=== PATIENT | female | born 1955 ===

== ENCOUNTER → 2021-11-26 10:18 | Outpatient (CLI) | payer BC, MEDICARE, SELFPAY ==
--- NOTE | 2021-11-26 10:26 | DI.RAD.S_ITS ---
PROCEDURE: XR LUMBAR SPINE MIN 4V INDICATIONS: BACK PAIN TECHNIQUE: 5 views of the lumbar spine were acquired, including bilateral oblique views. COMPARISON: None. FINDINGS: Bones: 5 nonrib-bearing vertebrae are present. Generalized osteopenia. Postsurgical changes are seen from laminectomies throughout the mid to lower lumbar spine with posterior pedicle screws and interbody rods at L1 through L3. There is apparent solid osseous fusion across the disc space from the L3 level through the S1 level. Osseous fusion of the posterior elements is also seen. There is partial osseous fusion across the L1-2 and L2-3 disc space. Disc space narrowing and degenerative endplate changes are seen at the T11-12 and T12-L1 levels. Mild levoconvex curvature is seen at the thoracolumbar junction. No vertebral body compression fractures. No suspicious bony lesions. Soft tissues: Overlying bowel gas pattern is normal. No suspicious soft tissue calcifications. Oblique images: No pars defects. IMPRESSION: 1. Postsurgical changes throughout the lumbar spine as described in the body of the report with solid osseous fusion. 2. Degenerative changes are seen in the included lower thoracic spine. 3. No acute osseous abnormality. If the symptoms persist, consider cross sectional imaging such as MRI or CT for further assessment. Dictated by: Giancarlo Mane M.D. on 11/26/2021 at 11:11 Approved by: Giancarlo Mane M.D. on 11/26/2021 at 11:15
== END ==
PROVIDERS: PCP Family Medicine; Referring Provider Physical Medicine & Rehabilitation; Visit Provider Physical Medicine & Rehabilitation
DX: M54.9 Dorsalgia, unspecified (principal)
CPT/HCPCS: 72110

== ENCOUNTER → 2022-01-03 09:44 | Outpatient (CLI) | payer BC, MEDICARE, SELFPAY ==
--- NOTE | 2022-01-03 09:51 | DI.MRI.S_ITS ---
PROCEDURE: MR LUMBAR SPINE WO CON INDICATIONS: SI joint pain status post lumbar fusion TECHNIQUE: Noncontrast sagittal T1 spin echo and T2 fast echo, sagittal STIR, and T2 fast spin echo through the lumbar spine. In cases with scoliosis, additional coronal T2 fast spin echo may be performed. COMPARISON: [facility], CR, XR LUMBAR SPINE MIN 4V, 11/26/2021, 10:22. FINDINGS: Image quality: Excellent. Alignment and Curvature: S shaped scoliotic curvature is present within the visualized thoracolumbar spine. There is 3 mm retrolisthesis of L1 on L2, 5 mm retrolisthesis of L2 on L3. Posterior fusion is present at L1 through L3. There is appearance of near complete osseous fusion from L3 through S1. Bone Marrow: Marrow is of normal overall signal. Moderate reactive endplate changes are present at T12-L1, T11-12. No acute vertebral body compression fractures. Spinal Cord: Conus medullaris terminates at the L1 level. Visualized cord demonstrates normal signal and size. Paraspinous Soft Tissues: No paravertebral masses. Discs: Severe desiccation is present throughout the lumbar spine. T12-L1: Mild disc bulge with effacement of the anterior thecal sac. Moderate bilateral foraminal narrowing with facet and ligamentum flavum hypertrophy. L1-L2: Minimal disc bulge without spinal stenosis. There is appearance of likely [id number] right foraminal narrowing partially obscured by susceptibility artifact from pedicle hardware. L2-L3: Mild disc bulge without spinal stenosis. Mild to moderate bilateral foraminal narrowing, right greater than left with facet and ligamentum flavum hypertrophy. L3-L4: No disc bulge or spinal stenosis. Mild left foraminal narrowing with facet hypertrophy. Posterior laminectomy is present. L4-L5: No disc bulge or spinal stenosis. Posterior laminectomy changes are present. Mild right foraminal narrowing. L5-S1: Minimal disc bulge without spinal stenosis. Mild bilateral foraminal narrowing. Posterior laminectomy changes. IMPRESSION: Postsurgical changes as above. Multilevel disc bulges. There is effacement of the anterior thecal sac at T12-L1 secondary to disc bulge. Multilevel foraminal narrowing is present most notable at T12-L1 as well as L2-3. Dictated by: Juliet Boyce M.D. on 01/05/2022 at 11:51 Approved by: Juliet Boyce M.D. on 01/05/2022 at 14:49
== END ==
PROVIDERS: PCP Family Medicine; Referring Provider Physical Medicine & Rehabilitation; Visit Provider Physical Medicine & Rehabilitation
DX: M53.3 Sacrococcygeal disorders, not elsewhere classified (principal); M41.9 Scoliosis, unspecified; M51.25 Other intervertebral disc displacement, thoracolumbar region; M51.26 Other intervertebral disc displacement, lumbar region; M48.05 Spinal stenosis, thoracolumbar region; M48.061 Spinal stenosis, lumbar region without neurogenic claudication; Z98.1 Arthrodesis status
CPT/HCPCS: 72148

== ENCOUNTER 2022-01-27 09:52 | Outpatient (CLI) | payer BC, MEDICARE, SELFPAY ==
[2022-01-27] VITALS (10 sets, daily range): BP systolic 123–160; BP diastolic 69–93; PULSE 59–69; RESP 14–20; TEMP 36.8; O2SAT 97–100
--- NOTE | 2022-01-27 09:55 | DI.RAD.S_ITS ---
PROCEDURE: PAIN SI JOINT INJECTION DYLLAN COMPARISON: [facility], MR, MR LUMBAR SPINE WO CON, 01/03/2022, 10:38. [facility], CR, XR LUMBAR SPINE MIN 4V, 11/26/2021, 10:22. INDICATIONS: SACROILIAC DISORDER FINDINGS: Fluoroscopic spot filming was performed to verify placement of spinal needles on both sides into the sacroiliac joints, as labeled on the films. Appropriate location of the needle tips was confirmed by injection of iodinated contrast. IMPRESSION: Intraprocedural examination demonstrating appropriate positions of the needles. Dictated by: Arvind Forte M.D. on 01/27/2022 at 12:26 Approved by: Arvind Forte M.D. on 01/27/2022 at 12:26
[2022-01-27 11:05] LABS: COVID19 -Nasal RAPID Negative (Negative)
[2022-01-27] MEDS: MIDAZOLAM 2 MG/2 ML VIAL IV ×2 (12:08→12:13)
[2022-01-27] MEDS: IOPAMIDOL 15 ML VIAL 3 ML INJ (12:11)
[2022-01-27] MEDS: BUPIVACAINE 0.5% (PF) VIAL 5 ML INJ (12:11)
[2022-01-27] MEDS: BETAMETHASONE 30 MG/5 ML MDV 12 MG INJ (12:13)
[2022-01-27] MEDS: LIDOCAINE 1% 20 ML INJ (12:14)
--- NOTE | 2022-01-27 12:25 | P.PCN_ITS ---
Date/Time/Diagnoses Date of procedure: 01/27/22 Time of procedure: 12:25 Pre-procedure diagnosis: Sacroiliac joint pain/DJD Post-procedure diagnosis: same Procedure Notes Procedure: Fluoroscopic guided contrast controlled bilateral sacroiliac joint injection Indications: Thea is referred by Dr. Corrales for treatment of bilateral sacroiliac joint DJD Physician: Lenard Worthington Total Fluoroscopy time (seconds): 14 Total sedation minutes: 14 Complications: none Procedure in detail & Post-procedure care: Description of procedure Fluoroscopic guided, contrast controlled bilateral sacroiliac joint injection Following review of allergies and review of potential side effects and complications, including, but not necessarily limited to, infection, allergic reaction, local tissue breakdown, temporary as well as permanent nerve injury, paralysis, stroke and possible , the patient indicated that they understood and agreed to proceed. An informed consent was signed by the patient, witnessed by a nurse, and placed in the patient's chart. Additionally, other treatment options including modalities, medications, and physical therapy were reviewed with the patient. After review of previous anaesthesic history and IV conscious sedation the patient was deemed safe to proceed with today?s procedure with IV conscious sedation as ASA class II designation. Safety time-out was performed to confirm patient ID, procedure to be performed and site of procedure. IV sedation was accomplished with a combination of 4mg Versed were administered by the RN after DO order, titrated to patient comfort during the course of the procedure while the patient remained responsive to all verbal commands In the prone position following sterile prep and drape of the pelvic region, the hyper lucency on in the inferior aspect of the sacroiliac joint was identified fluoroscopically the skin was anesthetized be a 25 gauge 1.5 inch needle with approximately 2cc of 1% lidocaine solution. At this point, a 22 gauge 3 in spi nal needle was atraumatically introduced and advanced under fluoroscopic guidance into the inferior aspect of the right sacroiliac joint. Following negative aspiration, approximately 0.3cc of Isovue-300 was injected confirming intra-articular placement without vascular uptake. Radiographic data, including multiple fluoroscopic views of the pelvis, reveals a spinal needle in the sacroiliac joint hyper lucent zone. Subsequent view show flow contrast tear superiorly and inferiorly within the joint capsule without vascular intrathecal uptake. At this point a total of 1cc of 0.5% Marcaine was combined with 1cc of 6mg of betamethasone was injected without incident. Attention was then refocused the left sacroiliac joint where the procedure was replicated. The procedure tolerated the procedure well without signs or symptoms of complications prior to transfer to the recovery area continued monitoring without incident. The patient was then transferred to the recovery area with a bur observed for an appropriate time after the injection. The patient reverted a vas score of 7 prior to the procedure and post-procedure vas of 1. Postop instructions The patient was provided with a pain like to continue to record the patient's response to the target specific procedure prior to the patient's follow-up visit with the referring physician. Additionally, specific post injection care instructions and a contact number to our office were provided if concerns arise regarding the possible complications associated with procedure are suspected.
== END 2022-01-27 12:43 | disposition home or self-care (01) ==
LOC: RAD 09:55
PROVIDERS: PCP Family Medicine; Referring Provider Physical Medicine & Rehabilitation; Visit Provider Physical Medicine & Rehabilitation
DX: M53.3 Sacrococcygeal disorders, not elsewhere classified (principal); M41.26 Other idiopathic scoliosis, lumbar region
CPT/HCPCS: 27096; 87635; 99152; J0702; J2250

== ENCOUNTER 2022-04-14 09:43 | Outpatient (CLI) | payer BC, MEDICARE, SELFPAY ==
[2022-04-14] VITALS (8 sets, daily range): BP systolic 112–152; BP diastolic 69–85; PULSE 50–68; RESP 15–30; TEMP 36.8; O2SAT 96–99
--- NOTE | 2022-04-14 09:45 | DI.RAD.S_ITS ---
PROCEDURE: PAIN L INTERLAMINAR/CAUDAL INJ INDICATIONS: SPONDYLOSIS COMPARISON: None. FINDINGS: Fluoroscopic spot filming was performed to verify placement of spinal needles at the T12-L1 interlaminar space level(s), as labeled on the films. Appropriate location(s) of the needle tip(s) was confirmed by injection of iodinated contrast. Partially visualized lumbar spine fixation hardware. IMPRESSION: Access needle tip in the T12-L1 interlaminar space for translaminar epidural steroid injection. Dictated by: Tierney Mendoza MD, PhD on 04/14/2022 at 13:55 Approved by: Tierney Mendoza MD, PhD on 04/14/2022 at 13:56
[2022-04-14] MEDS: MIDAZOLAM 2 MG/2 ML VIAL IV (11:28)
[2022-04-14] MEDS: DEXAMETHASONE 10 MG/ML VIAL 30 MG INJ (11:35)
[2022-04-14] MEDS: IOPAMIDOL 15 ML VIAL 3 ML INJ (11:35)
[2022-04-14] MEDS: BUPIVACAINE 0.25% (PF) VIAL 5 ML SUBCUT (11:36)
--- NOTE | 2022-04-14 11:56 | P.PCN_ITS ---
Date/Time/Diagnoses Date of procedure: 04/14/22 Time of procedure: 11:56 Pre-procedure diagnosis: 1. THORACIC STENOSIS 2. 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 Corrales for treatment of Cervical Stenosis. Physician: Lenard Worthington Total Fluoroscopy time (seconds): 16 Total sedation minutes: 14 Complications: none Procedure in detail & Post-procedure care: DESCRIPTION OF PROCEDURE Following review of allergy and review of potential side effects and comp lications, including, but not necessarily limited to, infection, allergic reaction, local tissue breakdown, temporary as well as permanent nerve injury, stroke, paralysis, and possible , the patient indicated that patient understood and agreed to proceed. An informed consent document was signed by the patient, witnessed by a nurse, and placed in the patient's chart. Additionally, other treatment options including modalities, medications, and physical therapy were reviewed with the patient. After review of previous anaesthesic history and IV conscious sedation the patient was deemed safe to proceed with todays procedure with IV conscious sedation as ASA class II designation. Safety time-out was performed to confirm patient ID, procedure to be performed and site of procedure. IV sedation was accomplished with a combination of 2mg of Versed administered by the RN after DO order, titrated to patient comfort during the course of the procedure while the patient remained responsive to all verbal commands. In the prone position, following sterile prep and drape of the cervical region, the T12/L1 translaminar space was identified fluoroscopically. The skin was anesthetized via a 25-gauge 1.5-inch needle with 1% lidocaine solution. At this point, a 25-gauge, 2.5-inch short bevel spinal needle was atraumatically introduced and advanced under fluoroscopic guidance into epidural space at the T12/L1 translaminar space. Depth was confirmed on lateral view. Radiological data, including multiple fluoroscopic views of the cervical spine, reveal a spinal needle at the T12/L1 translaminar space. Lateral views then show placement of the needle in the epidural space. Subsequent views show contrast material flowing superiorly and inferiorly in the epidural space. DSA fluoroscopy with live contrast injection, once again, confirmed no vascular or intrathecal uptake. At this point, using loss of resistance technique with saline and air, the epidural space was entered. Following negative aspiration, injection of approximately 1.5 cc of Isovue-200 with live fluoroscopy in the AP view confirmed epidural flow in the epidural space without vascular or intrathecal uptake observed. Subsequently, a test dose of 1 cc of 1% lidocaine solution was injected and patient was observed for two minutes without signs or symptoms of complications, including abdominal pain, shortness of breath, bilateral upper or lower extremity weakness, nausea and vomiting, prior to steroid injection. At this point, 3cc or 30mg of dexamethasone was then injected without incident. The patient tolerated the procedure well without signs or symptoms of complications prior to transfer to the recovery area for further monitoring The patient was then transferred to the recovery area where they were observed for an appropriate period of time after the injection. The patient reported a VAS score of 6 prior to the procedure and a post-procedure VAS of 0 POST OP INSTRUCTIONS The patient was provided a Pain Log to continue to record the patient's response to the target-specific procedure prior to the patient's follow-up visit with the referring physician. Additionally, specific post-injection care instructions and a contact number to our office were provided if concerns arise regarding possible complications associated with the procedure are suspected.
== END 2022-04-14 12:04 | disposition home or self-care (01) ==
PROVIDERS: PCP Family Medicine; Referring Provider Physical Medicine & Rehabilitation; Visit Provider Physical Medicine & Rehabilitation
DX: M48.04 Spinal stenosis, thoracic region (principal); M51.14 Intervertebral disc disorders with radiculopathy, thoracic region
CPT/HCPCS: 62321; 62323; 99152; J1100; J2250; J3490

== ENCOUNTER → 2022-10-15 10:22 | Outpatient (CLI) | payer BC, MEDICARE, SELFPAY | PROVIDERS: Absent Provider Family Medicine; Family Provider Family Medicine; PCP Family Medicine; Referring Provider Student in an Organized Health Care Education/Training Program; Visit Provider Student in an Organized Health Care Education/Training Program | DX: M79.606 Pain in leg, unspecified (principal); M54.50 Low back pain, unspecified; G89.29 Other chronic pain | CPT/HCPCS: 95886; 95909 ==